=== PATIENT | female | born 2000 | race American Indian/Alaskan Native ===

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

== ENCOUNTER 2020-07-25 18:33 | Outpatient (CLI) | payer MEDICAID ==
[2020-07-25 19:18] VITALS: BP 110/67
[2020-07-25] MEDS ORDERED: TERBUTALINE 1 MG/1 ML INJ SUB-Q SCH (20:00)
[2020-07-25] MEDS ORDERED: LACTATED RINGERS 1,000 ML IV ONE (20:40)
[2020-07-25 22:46] LABS: Bilirubin,Urine NEG (Negative); Blood,Urine NEG (Negative); Color,Urine Yellow (Yellow); Mucus,Urine 1+ /HPF; Urobilinogen,Urine < 2.0 mg/dL (<2.0)
== END 2020-07-25 23:15 | disposition home or self-care (01) ==
LOC: TRG 18:33 → APU 18:35 → TRG 23:15
PROVIDERS: ATTEND Obstetrics & Gynecology
DX: O47.03 False labor before 37 completed weeks of gestation, third trimester (principal); Z3A.33 33 weeks gestation of pregnancy
CPT/HCPCS: 59025; 81001; 96360; 96361; 96372; J3105; J7120

== ENCOUNTER 2020-08-11 15:11 | Outpatient (CLI) | payer MEDICAID ==
[2020-08-11] MEDS ORDERED: LACTATED RINGERS 1,000 ML ONE (16:06)
[2020-08-11 16:22] LABS: Bilirubin,Urine NEG (Negative); Blood,Urine NEG (Negative); Color,Urine Yellow (Yellow); Mucus,Urine FEW /HPF; Protein,Urine <15 mg/dL mg/dL (Negative)
[2020-08-11] MEDS ORDERED: LACTATED RINGERS 1,000 ML IV SCH ×2 (17:00)
[2020-08-11] MEDS ORDERED: NIFEdipine*For Tocolysis only* 10 MG CAPSULE PO ONE (22:02)
[2020-08-11 22:15] VITALS: BP 111/63
== END 2020-08-11 23:29 | disposition home or self-care (01) ==
LOC: TRG 15:11 → APU 15:12 → TRG 23:29
PROVIDERS: ATTEND Obstetrics & Gynecology
DX: O47.03 False labor before 37 completed weeks of gestation, third trimester (principal); Z3A.36 36 weeks gestation of pregnancy
CPT/HCPCS: 81001; J7120

== ENCOUNTER 2020-08-19 21:11 | Outpatient (CLI) | payer MEDICAID ==
[2020-08-19 21:49] VITALS: BP 115/67
[2020-08-19] MEDS ORDERED: LACTATED RINGERS 500 ML IV ONE (23:00)
== END 2020-08-19 23:44 | disposition home or self-care (01) ==
LOC: APU 21:11 → TRG 21:11
PROVIDERS: ATTEND Obstetrics & Gynecology
DX: O47.1 False labor at or after 37 completed weeks of gestation (principal); Z3A.37 37 weeks gestation of pregnancy
CPT/HCPCS: 59025

== ENCOUNTER 2020-08-30 10:51 | Outpatient (CLI) | payer MEDICAID ==
[2020-08-30 13:29] VITALS: BP 112/62
== END 2020-08-30 14:05 | disposition home or self-care (01) ==
LOC: TRG 10:51 → APU 10:52 → TRG 14:05
PROVIDERS: ATTEND Obstetrics & Gynecology
DX: O47.1 False labor at or after 37 completed weeks of gestation (principal); Z3A.38 38 weeks gestation of pregnancy
CPT/HCPCS: 59025

== ENCOUNTER 2020-09-03 12:44 | Outpatient (CLI) | payer MEDICAID ==
[2020-09-03 13:10] VITALS: BP 112/67
== END 2020-09-03 14:33 | disposition home or self-care (01) ==
LOC: TRG 12:44 → APU 12:45 → TRG 14:33
PROVIDERS: ATTEND Obstetrics & Gynecology
DX: O42.913 Preterm premature rupture of membranes, unspecified as to length of time between rupture and onset of labor, third trimester (principal); Z3A.39 39 weeks gestation of pregnancy
CPT/HCPCS: 59025

== ENCOUNTER 2020-09-11 12:30 | Inpatient (IN) | payer MEDICAID ==
[2020-09-11] MEDS ORDERED: fentaNYL 100 MCG/2 ML INJ IV PRN (18:03)
[2020-09-11] MEDS ORDERED: ONDANSETRON 4 MG/2 ML INJ IV PRN (18:03)
[2020-09-11] MEDS ORDERED: OXYTOCIN 10 UNIT/1 ML INJ IM PRN (18:03)
[2020-09-11] MEDS ORDERED: ePHEDrine SULFATE 50 MG/1 ML INJ IV PRN (18:03)
[2020-09-11] MEDS ORDERED: METHYLERGONOVINE MALEATE 0.2 MG/ML VIAL IM PRN (18:03)
[2020-09-11] MEDS ORDERED: miSOPROStol 200 MCG TAB PR PRN (18:03)
[2020-09-11] MEDS ORDERED: TERBUTALINE 1 MG/1 ML INJ SUB-Q PRN (18:03)
[2020-09-11] MEDS ORDERED: BUTORPHANOL 2 MG/1 ML INJ IV PRN (18:03)
[2020-09-11] MEDS ORDERED: NalbUPHINE 10 MG/1 ML INJ IV PRN (18:03)
[2020-09-11] MEDS ORDERED: MINERAL OIL 30 ML ORAL LIQD PO PRN (18:03)
[2020-09-11] MEDS ORDERED: NALOXONE 0.4 MG/1 ML INJ IV PRN (18:03)
[2020-09-11] MEDS ORDERED: LACTATED RINGERS 1,000 ML IV SCH (19:00)
[2020-09-11] MEDS ORDERED: LIDOCAINE (2%) 20 MG/1 ML VIAL 20 ML MDV INFILTRATI ONE ×3 (19:03→23:05)
[2020-09-11 20:36] LABS: Hematocrit 32.7 % (30.3-42.9); Hemoglobin 11.1 gm/dl (10.1-14.3); Mean Corpuscular HGB Conc 34 % (30-34); Mean Corpuscular Volume 89 fl (79-97); Platelet Count 298 K/mm3 (140-440); Red Blood Count 3.66 M/mm3 (3.65-5.03); Red Cell Distribution Width 14.5 % (13.2-15.2)
--- NOTE | 2020-09-11 21:58 | History and Physical Report ---
History of Present Illness Date of examination: 09/11/20 Date of admission: 09/11/20 18:03 Chief complaint: contractions History of present illness: Pt is a 20 year old SRINIVASAN 09/08/20 at 40w3d who presents with painful contractions and cervical change from 4 to 5 cm while in triage. She denies leakage of fluid and vaginal bleeding. She has had care at [facility] since 11 wks with lapse between 11 and 29 wks complicated by limited care. She is GBS negative. Past History Past Medical History: no pertinent history Past Surgical History: no surgical history Family/Genetic History: none Social history: no significant social history - Obstetrical History Expected Date of Delivery: 09/08/20 Actual Gestation: 40 Week(s) 3 Day(s) : 2 Para: 1 Hx # Term Pregnancies: 1 Number of Pregnancies: 0 Spontaneous Abortions: 0 Induced : 0 Number of Living Children: 1 Medications and Allergies Allergies Allergy/AdvReac Type Severity Reaction Status Date / Time No Known Allergies Allergy Verified 09/03/20 13:02 Home Medications Medication Instructions Recorded Confirmed Last Taken Type Vitamin 1 tab PO DAILY 09/03/20 09/03/20 09/02/20 17:00 History Active Meds: Active Medications Butorphanol Tartrate (Stadol) 2 mg IV Q2H PRN PRN Reason: Pain , Severe (7-10) Ephedrine Sulfate (Ephedrine Sulfate) 10 mg IV Q2M PRN PRN Reason: Hypotension Fentanyl (Sublimaze) 100 mcg IV Q2H PRN PRN Reason: Pain,Severe (7-10) LABOR PAIN Oxytocin/Sodium Chloride (Pitocin/Ns 30 Unit/500ml) 30 units in 500 mls @ 2 mls/hr IV TITR DAPHNIE; Protocol Last Admin: 09/11/20 21:14 Dose: 2 ml/hr, 2 mls/hr Documented by: Lactated Ringer's (Lactated Ringers) 1,000 mls @ 125 mls/hr IV DIRECT DAPHNIE Last Admin: 09/11/20 21:14 Dose: 125 mls/hr Documented by: Oxytocin/Sodium Chloride (Pitocin/Ns 30 Unit/500ml) 30 units in 500 mls @ 40 mls/hr IV TITR DAPHNIE; Protocol Methylergonovine Maleate (Methergine) 0.2 mg IM ONCE PRN PRN Reason: Uterine Bleeding Mineral Oil (Mineral Oil) 30 ml PO QHS PRN PRN Reason: Constipation Misoprostol (Cytotec) 800 mcg MO ONCE PRN PRN Reason: Uterine Bleeding Nalbuphine HCl (Nalbuphine) 10 mg IV Q2H PRN PRN Reason: Pain, Moderate (4-6) Naloxone HCl (Naloxone) 0.1 mg IV Q2MIN PRN PRN Reason: Res Rate </= 8 or 02 SAT < 92% Ondansetron HCl (Zofran) 4 mg IV Q8H PRN PRN Reason: Nausea And Vomiting Oxytocin (Pitocin) 10 unit IM ONCE PRN PRN Reason: Uterine Bleeding Terbutaline Sulfate (Brethine) 0.25 mg SUB-Q ONCE PRN PRN Reason: Hyperstimulation/Hypertonicity Review of Systems All systems: negative - Vital Signs Vital signs: Vital Signs Temp Resp 98.5 F 20 09/11/20 13:18 09/11/20 13:18 Temp Pulse Resp BP Pulse Ox 98.4 F 78 18 111/67 99 09/11/20 19:21 09/11/20 20:01 09/11/20 19:21 09/11/20 18:03 09/11/20 20:01 - Physical Exam Breasts: Positive: deferred Abdomen: Positive: soft (obese, gravid ) Genitourinary (Female): Positive: normal external genitalia Uterus: Positive: enlarged (gravid ) Extremities: Positive: normal - Obstetrical FHR: auscultation normal Uterine Contraction Monitor Mode: External Cervical Dilatation: 6 Cervical Effacement Percentage: 60 station: -1 Uterine Contraction Pattern: Irregular Uterine Tone Measurement Phase: Resting Uterine Contraction Intensity: Moderate Results Result Diagrams: 09/11/20 19:25 Abnormal lab results 09/11/20 Range/Units 19:25 WBC 15.7 H (4.5-11.0) K/mm3 All other labs normal. Assessment and Plan A: IUP at 40w3d Labor GBS Negative P: Admit to labor and delivery Routine intapartum care AROM- clear liquid Pitocin augmentation
[2020-09-11] MEDS ORDERED: OXYTOCIN DRIP 30 UNITS/500 ML BAG IV SCH ×2 (22:00)
--- NOTE | 2020-09-11 22:37 | Event Note ---
Date: 09/11/20 Pt uncomfortable with epidural. Category II tracing. SVE: /1. Continue routine intrapartum care. Closely monitor maternal and status.
[2020-09-11] MEDS ORDERED: MINERAL OIL 30 ML ORAL LIQD ONE (23:00)
[2020-09-12] MEDS ORDERED: BUPIVACAINE EPIDURAL ONE (00:04)
[2020-09-12] MEDS ORDERED: ceFAZolin/STERILE WATER 2 GM/20 ML SYRINGE IV ONE (00:04)
[2020-09-12] MEDS ORDERED: miSOPROStol 200 MCG TAB ONE (00:04)
[2020-09-12] MEDS ORDERED: fentaNYL 100 MCG/2 ML INJ ONE (00:04)
[2020-09-12] MEDS ORDERED: LACTATED RINGERS 1000 ML IV SOLN ONE ×2 (00:04→16:00)
[2020-09-12] MEDS ORDERED: FENTANYL EPIDURAL ONE (00:04)
[2020-09-12] MEDS ORDERED: ePHEDrine SULFATE 50 MG/1 ML INJ ONE (00:04)
[2020-09-12] MEDS ORDERED: METHYLERGONOVINE MALEATE 0.2 MG/ML VIAL IM ONE (00:04)
[2020-09-12] MEDS ORDERED: fentaNYL-BUPIV 2 MCG/ML-0.125% 200 MCG/100 ML BAG EPIDURAL ONE (01:22)
[2020-09-12] MEDS ORDERED: fentaNYL-BUPIV 2 MCG/ML-0.125% 200 MCG/100 ML BAG EPIDURAL SCH (04:00)
[2020-09-12] MEDS ORDERED: FAMOTIDINE 20 MG/2 ML INJ IV ONE (04:28)
[2020-09-12] MEDS ORDERED: BICITRA ORAL LIQD 30ML ONE (04:28)
[2020-09-12] MEDS ORDERED: ceFAZolin/Water 2 GM/20 ML 2 GM/20 ML SYRINGE IV ONE (04:28)
[2020-09-12] MEDS ORDERED: METOCLOPRAMIDE 10 MG/2 ML INJ ONE (04:28)
[2020-09-12] MEDS ORDERED: IBUPROFEN 600 MG TAB PO ONE ×2 (10:00→10:09)
--- NOTE | 2020-09-12 17:05 | Anesthesia Consultation ---
Anesthesia Consult and Med Hx Date of service: 09/12/20 - Airway Anesthetic Teeth Evaluation: Good ROM Head & Neck: Adequate Mental/Hyoid Distance: Adequate Mallampati Class: Class II Intubation Access Assessment: Probably Good - Pulmonary Exam CTA: Yes - Cardiac Exam Cardiac Exam: RRR - Pre-Operative Health Status ASA Pre-Surgery Classification: ASA2 Proposed Anesthetic Plan: Epidural, Spinal - Pulmonary Hx Smoking: No Hx Asthma: No COPD: No Hx Pneumonia: No Hx Sleep Apnea: No - Cardiovascular System Hx Hypertension: No - Central Nervous System Hx Seizures: No Hx Psychiatric Problems: No - Gastrointestinal Hx Gastroesophageal Reflux Disease: No - Endocrine Hx Renal Disease: No Hx End Stage Renal Disease: No Hx Hypothyroidism: No Hx Hyperthyroidism: No - Hematic Hx Anemia: No Hx Sickle Cell Disease: No - Other Systems Hx Alcohol Use: No
--- NOTE | 2020-09-12 17:05 | Post Anesthesia Evaluation ---
- Post Anesthesia Evaluation Patient Participated: Yes Airway Patent: Yes Stable Respiratory Function: Yes Nausea/Vomiting: No Temp > 96.8F: Yes Pain Manageable: Yes Adequeate Hydration: Yes Anesthesia Complications: No Block Receding Appropriately: Yes Patient on Ventilator: No
[2020-09-13] MEDS ORDERED: LANOLIN/ZINC/DIMETHICONE (LANSINOH) 7 GM TP PRN (03:17)
[2020-09-13] MEDS ORDERED: PROMETHAZINE 25 MG TAB PO PRN (03:17)
[2020-09-13] MEDS ORDERED: BENZOCAINE/MENTHOL 20/0.5% TOP SPRAY 56 GM TP PRN (03:17)
[2020-09-13] MEDS ORDERED: WITCH HAZEL/ GLYCERIN PAD TP PRN (03:17)
[2020-09-13] MEDS ORDERED: HYDROcodone/ACETAMINOPHEN 5-325 MG TAB PO PRN (03:17)
[2020-09-13] MEDS ORDERED: PROMETHAZINE 25 MG RECT SUPP PR PRN (03:17)
[2020-09-13] MEDS ORDERED: ACETAMINOPHEN 325 MG TAB PO PRN (03:17)
[2020-09-13] MEDS ORDERED: HYDROCORTISONE 25 MG RECTAL SUPP PR PRN (03:17)
[2020-09-13] MEDS ORDERED: diphenhydrAMINE 25 MG CAP PO PRN (03:17)
[2020-09-13] MEDS ORDERED: MAGNESIUM HYDROXIDE (MOM) ORAL LIQD UDC PO PRN (03:17)
[2020-09-13] MEDS ORDERED: IBUPROFEN 600 MG TAB PO SCH (06:00)
--- NOTE | 2020-09-13 07:44 | Procedure Note ---
OB Delivery Note - Delivery Date of Delivery: 09/12/20 Surgeon: TIESHA FRANCOIS Estimated blood loss: 500cc - Vaginal Delivery presentation: vertex Delivery position: OA Intrapartum events: PROM->1hr before delivery, decreased FHT variability, mult.variable deceleratio, uterine atony Delivery induction: none Delivery augmentation: rupture of membranes, pitocin Delivery monitor: external FHT, external uterine Route of delivery: Delivery cord: nuchal cord (tight; doubly clamped and cut ), other (Body cord x 1) Delivery laceration: 1st degree Delivery repair: vicryl Anesthesia: epidural - Infant A at 1 minute: 8 at 5 minutes: 9 Infant Gender: Male (3250g (7lb 2oz) @ 0626 am)
[2020-09-13 09:34] LABS: Hematocrit 29.8 % (30.3-42.9)
[2020-09-13] MEDS ORDERED: SENNOSIDES/DOCUSATE SODIUM 8.6/50 MG TAB PO SCH (10:00)
--- NOTE | 2020-09-13 13:33 | Progress Note ---
Assessment and Plan A: PPD1 s/p Vital signs stable Mild anemia due to blood loss P: Ferrous sulfate supplementation Discharge to home today Subjective - Subjective Date of service: 09/13/20 Principal diagnosis: s/p Interval history: PPD1 s/p Patient reports: appetite normal, voiding normally, pain well controlled, ambulating normally [place]: doing well, nursing well Objective - Vital Signs Latest vital signs: Vital Signs Temp Pulse Resp BP BP Pulse Ox 09/13/20 08:22 97.8 F 61 18 96/58 98 09/13/20 00:22 98.0 F 85 20 108/61 98 09/12/20 17:29 98.6 F 87 18 115/62 97 Intake and Output 09/12/20 09/13/20 09/13/20 23:59 07:59 15:59 Intake Total 480 600 240 Balance 480 600 240 Intake: Oral 480 600 240 Other: Total, Intake Amount 240 240 240 # Voids Void 1 1 - Exam Lungs: Present: Normal air movement Abdomen: Present: soft. Absent: distention Uterus: Present: firm, fundal height below umbilicus. Absent: bogginess Extremities: Present: normal - Labs Labs: Abnormal lab results 09/13/20 Range/Units 08:44 Hgb 10.0 L (10.1-14.3) gm/dl Hct 29.8 L (30.3-42.9) %
--- NOTE | 2020-09-13 13:34 | Discharge Summary ---
Providers - Providers Date of Admission: 09/11/20 18:03 Date of discharge: 09/13/20 Attending physician: TIESHA FRANCOIS Primary care physician: TIESHA FRANCOIS Hospitalization Reason for admission: active labor, IUP at term Delivery: Episiotomy: none Laceration: 1st degree Other procedures: none complications: none Discharge diagnosis: IUP at term delivered Condition at discharge: Good Disposition: DC-01 TO HOME OR SELFCARE Plan - Discharge Medications Prescriptions: Ferrous Sulfate [Feosol 325 MG tab] 325 mg PO BID #60 tablet Ibuprofen [Motrin] 800 mg PO Q8HR PRN #30 tablet PRN Reason: Pain, Moderate (4-6) - Provider Discharge Summary Activity: routine, no sex for 6 weeks, no heavy lifting 4 weeks, no strenuous exercise Diet: routine Instructions: routine Additional instructions: [] Smoking cessation referral if applicable(refer to patient education folder for contact #) [] Refer to [facility] Booklet Call your doctor immediately for: * Fever > 100.5 * Heavy vaginal bleeding ( >1 pad per hour) * Severe persistent headache * Shortness of breath * Reddened, hot, painful area to leg or breast * Drainage or odor from incision. * Keep incision clean and dry at all times and follow doctor's instructions regarding bathing/showering - Follow up plan Follow up: KASSIDY CORNELL CNM [Advanced Practice Nurse] - 14 Days (Please call office to schedule appointment.)
[2020-09-13 14:57] VITALS: BP 110/70
[2020-09-14] MEDS ORDERED: MEASLES, MUMPS & RUBELLA 12,500 UNIT/0.5 ML VACCINE SUB-Q ONE (03:17)
[2020-09-14] MEDS ORDERED: DIPHtheria,PERTUSSIS(ACELL),TETANUS VACCINE/PF 0.5 ML VIAL IM ONE (06:00)
== END 2020-09-13 15:00 | disposition home or self-care (01) | DRG 775 ==
LOC: TRG 12:30 → SPVWC 12:30 → APU 12:31 → TRG 18:03 → LD 18:03 → OB 09-12 09:00
PROVIDERS: ADMIT Obstetrics & Gynecology; ATTEND Obstetrics & Gynecology
PROC: 10E0XZZ Delivery of Products of Conception, External Approach (ICD-10-PCS; principal; 2020-09-13)
PROC: 3E0R3BZ Introduction of Anesthetic Agent into Spinal Canal, Percutaneous Approach (ICD-10-PCS; 2020-09-13)
PROC: 00HU33Z Insertion of Infusion Device into Spinal Canal, Percutaneous Approach (ICD-10-PCS; 2020-09-13)
PROC: 0HQ9XZZ Repair Perineum Skin, External Approach (ICD-10-PCS; 2020-09-13)
DX: O76 Abnormality in fetal heart rate and rhythm complicating labor and delivery (principal); O69.1XX0 Labor and delivery complicated by cord around neck, with compression, not applicable or unspecified; Z3A.40 40 weeks gestation of pregnancy; O62.2 Other uterine inertia; O70.0 First degree perineal laceration during delivery; O69.89X0 Labor and delivery complicated by other cord complications, not applicable or unspecified; Z37.0 Single live birth
CPT/HCPCS: 36415; 85014; 85018; 85027; 86592; 86850; 86900; 86901; G0378; J0690; J2210; J2590; J3010; J7120; U0003